=== PATIENT | female | born 1950 | race Caucasian/White ===

== ENCOUNTER → 2017-07-22 | Outpatient (CLI) | payer MEDICARE, MEDICAID | END | disposition home or self-care (01) | LOC: Rad HDHVI 15:37 | PROVIDERS: ATTEND Internal Medicine Cardiovascular Disease | DX: M17.0 Bilateral primary osteoarthritis of knee (principal) | CPT/HCPCS: 73562 ==

== ENCOUNTER → 2017-07-23 | Outpatient (CLI) | payer MEDICARE, MEDICAID ==
[2017-07-24 08:07] LABS: Thyroid Peroxidase (TPO) Ab 13 IU/mL (0-34)
== END | disposition home or self-care (01) ==
LOC: LAB 09:44
PROVIDERS: ATTEND Internal Medicine Cardiovascular Disease
DX: Z13.0 Encounter for screening for diseases of the blood and blood-forming organs and certain disorders involving the immune mechanism (principal); I25.10 Atherosclerotic heart disease of native coronary artery without angina pectoris; M32.10 Systemic lupus erythematosus, organ or system involvement unspecified; R70.0 Elevated erythrocyte sedimentation rate; R79.82 Elevated C-reactive protein (CRP)
CPT/HCPCS: 36415; 85652; 86141; 86225; 86235

== ENCOUNTER 2018-08-18 13:45 | Emergency (ER) | payer MEDICARE, MEDICAID ==
[~2018-08-18] VITALS: Ht 152.4 cm; Wt 55.8 kg
[2018-08-18 14:52] LABS: Basophils # (auto) 0 uL; Basophils % (auto) 0.5 % (0.0-2.0); Eosinophils # (auto) 0.8 uL; Eosinophils % (auto) 8.5 % (0.0-7.0); Hematocrit 30.9 % (36.0-46.0); Hemoglobin 10.2 g/dL (12.2-16.2); Lymphocytes % (auto) 21.7 % (10.0-50.0); Mean Corpuscular Hemoglobin 29.9 pg (28.0-32.0); Mean Corpuscular Hgb Conc. 32.9 g/dL (32.0-36.0); Mean Corpuscular Volume 91.1 fL (80.0-100.0); Monocytes # (auto) 0.5 uL; Monocytes % (auto) 5.2 % (0.0-12.0); Neutrophils % (auto) 64.1 % (37.0-80.0); Nucleated Red Blood Cells % 0.2 %; Platelet Count (auto) 223 10^3/uL (140-450); Red Blood Cells 3.39 10^6/uL (4.0-5.20); Red Cell Distribution Width 14.4 % (11.8-14.3); White Blood Cell 9.4 10^3/uL (4.4-10.8)
[2018-08-18 15:07] LABS: Anion Gap 9 (5-15); Blood Urea Nitrogen 60 mg/dL (7-18); Carbon Dioxide 14 mmol/L (21-32); Chloride 114 mmol/L (98-107); Glucose 116 mg/dL (74-106); Potassium 4.8 mmol/L (3.5-5.1); Sodium 137 mmol/L (136-145)
[2018-08-18 15:11] LABS: Alanine Aminotransferase 153 U/L (13-56); Alkaline Phosphatase 447 U/L (45-117); Aspartate Aminotransferase 162 U/L (15-37); BUN/Creatinine Ratio 10.5; Bilirubin, Total 0.2 mg/dL (0.2-1.0); Calcium 8.8 mg/dL (8.5-10.1); GFR African American 10 mL/min; GFR Non-African American 8 mL/min; Magnesium 2.4 mg/dL (1.6-2.6); Total Protein 7.8 g/dL (6.4-8.2)
[2018-08-18] MEDS ORDERED: ASPirin 81 mg TAB PO ONE (15:30)
[2018-08-18 16:35] VITALS: BP 165/80
== END 2018-08-18 16:48 | disposition home or self-care (01) ==
LOC: ER 13:46
DX: R07.89 Other chest pain (principal); G40.909 Epilepsy, unspecified, not intractable, without status epilepticus; M10.9 Gout, unspecified; I12.9 Hypertensive chronic kidney disease with stage 1 through stage 4 chronic kidney disease, or unspecified chronic kidney disease; N18.9 Chronic kidney disease, unspecified; Z90.710 Acquired absence of both cervix and uterus; Z86.73 Personal history of transient ischemic attack (TIA), and cerebral infarction without residual deficits
CPT/HCPCS: 36415; 70450; 71046; 80053; 83735; 84484; 85025; 93005